=== PATIENT | male | born 1945 | race Caucasian/White ===

== ENCOUNTER 2017-06-17 10:46 | Day surgery (SDC) | payer MEDICARE ==
[2017-06-16 11:36] VITALS: BMI 26.1
--- NOTE | 2017-06-17 13:47 | OP ---
DATE OF PROCEDURE: 06/17/2017 SURGEON: Andres Bernal M.D. MAINTENANCE DATA ANALYST SURGEON: None. PROCEDURE PERFORMED: Colonoscopy with snare polypectomy. INDICATION: A 72-year-old man here for average risk colorectal cancer screening exam. His last colo noscopy was 11 years ago, he reports no prior history of colon polyps. MEDICATIONS: See anesthesia record. FINDINGS: After discussion of the risks, benefits and alternatives of the procedure, informed consen t was obtained and witnessed. Pre-endoscopic cardiopulmonary examination was satisfactory. DESCRIPTION OF PROCEDURE: Timeout was performed before sedation was achieved. Sedation was achieved with anesthesia assistance in the endoscopy unit. A digital rectal exam was performed, which was un remarkable. A Pentax adult colonoscope was inserted into the anus and passed forward to the cecum in the usual fashion. The cecal base was identified by the appendiceal orifice as well as the ileoceca l valve. The terminal ileum was not intubated. The colonoscope was then slowly withdrawn in a gradu al and circumferential manner with careful examination of the entire colonic mucosa. The quality of the prep was good. In the descending colon, there was a single small sessile polyp measuring only 2 mm in diameter. This was completely removed with cold snare, but was unable to be retrieved for path ology. The remainder of the colonic mucosa appeared normal throughout. No abnormalities on retrofle xion in the rectum. The colonoscope was then completely withdrawn and the patient allowed to recover . The patient tolerated the procedure well. There were no immediate post-procedure complications. IMPRESSION: 1. Single 2 mm polyp in the descending colon, completely removed with cold snare and retrieved for p athology. 2. Otherwise, normal colonoscopy to the cecum. RECOMMENDATIONS: Repeat colonoscopy for surveillance in 5 years.
[2017-06-17] MEDS ORDERED: Propofol 200 MG/20 ML VIAL ONE (16:15)
== END 2017-06-17 14:10 | disposition home or self-care (01) ==
LOC: SDC 10:46
PROVIDERS: ATTEND Internal Medicine
PROC: 0DBM8ZX Excision of Descending Colon, Via Natural or Artificial Opening Endoscopic, Diagnostic (ICD-10-PCS; principal; 2017-06-17)
DX: Z12.11 Encounter for screening for malignant neoplasm of colon (principal); K63.5 Polyp of colon; I25.10 Atherosclerotic heart disease of native coronary artery without angina pectoris; E78.00 Pure hypercholesterolemia, unspecified; I10 Essential (primary) hypertension; E11.9 Type 2 diabetes mellitus without complications; Z87.891 Personal history of nicotine dependence; Z95.1 Presence of aortocoronary bypass graft; Z95.810 Presence of automatic (implantable) cardiac defibrillator; Z79.84 Long term (current) use of oral hypoglycemic drugs; Z79.82 Long term (current) use of aspirin; Z79.899 Other long term (current) drug therapy; Z98.890 Other specified postprocedural states
CPT/HCPCS: J2704

== ENCOUNTER 2019-04-07 08:20 | Outpatient (CLI) | payer MEDICARE ==
--- NOTE | 2019-04-07 11:42 | CT ---
CT ABDOMEN AND PELVIS WITH AND WITHOUT IV CONTRAST: Date: 04/07/19 PROVIDED CLINICAL HISTORY: Hematuria. FINDINGS: There is a partially calcified nodule at the left lung base with somewhat spiculated appearance to th e adjacent lung parenchyma that may be on the basis of volume loss. Trace bilateral pleural fluid. No evidence for urinary tract calculi or hydronephrosis. No evidence for renal mass. The delayed images demonstrate no evidence for filling defect involving t he renal collecting systems, opacified ureters, or urinary bladder. The liver, spleen, pancreas, and adrenal glands demonstrate an unremarkable CT appearance. There is no bowel dilatation, inflammatory fat stranding, free fluid, or lymph node enlargement appar ent. Vascular calcifications are seen. The osseous structures demonstrate no concerning lytic or blastic lesions. Degenerative changes are s een. IMPRESSION: 1. An etiology for the patient's hematuria is not evidence on this examination. 2. Partially calcified left lower lobe pulmonary nodule, for which 3-6 month follow-up chest CT is r ecommended. POS: OFF
[2019-04-07] MEDS ORDERED: Iopamidol 370 76% 100 ML VIAL ONE (18:12)
== END 2019-04-07 08:21 | disposition home or self-care (01) ==
LOC: CT 08:20
PROVIDERS: ATTEND Family Medicine
DX: R31.9 Hematuria, unspecified (principal); R91.1 Solitary pulmonary nodule
CPT/HCPCS: 74178; 82565; Q9967

== ENCOUNTER 2019-07-20 10:59 | Outpatient (CLI) | payer MEDICARE ==
--- NOTE | 2019-07-20 12:03 | CT ---
CT CHEST WITHOUT CONTRAST: HISTORY: Lung nodule. COMPARISON: None. FINDINGS: Lower neck and axilla: No masses or lymphadenopathy. Mediastinum: Limited evaluation by the lack of IV contrast. No mass, lymphadenopathy or hematoma. Aorta: Atherosclerosis of a nonaneurysmal aorta. HEART: No significant pericardial fluid. There are coronary artery calcifications. Normal heart size. Upper abdomen: Visualized upper solid abdominal viscera is unremarkable. Osseous structures: No lytic or blastic lesions. Trachea and central bronchi: Patent. Pleural spaces: No effusion. Pneumothorax: None. Lungs: Hyperinflation with chronic changes. There are scattered areas of scarring and atelectasis in the lung parenchyma, predominantly in both lower lobes. There is a calcified granuloma with associated scar formation in the left lower lobe, measuring 0.9 x 0.6 cm. Right lung: No suspicious masses, consolidation or nodules. Left lung: No suspicious masses, consolidation or nodules. IMPRESSION: 1. No suspicious masses, consolidation or nodules in the lung parenchyma. 2. Calcified nodule in the left lower lobe with associated scar. When compared to the CT from 019, there is no significant change. Transcribed Date/Time: 07/20/2019 12:32 PM
== END 2019-07-20 11:00 | disposition home or self-care (01) ==
LOC: SCSCT 10:59
PROVIDERS: ATTEND Family Medicine
DX: R91.1 Solitary pulmonary nodule (principal)
CPT/HCPCS: 71250

== ENCOUNTER 2021-12-16 08:17 | Emergency (ER) | payer MEDICARE | END 2021-12-16 09:40 | disposition home or self-care (01) | LOC: ERS 08:17 | DX: J32.0 Chronic maxillary sinusitis (principal); B96.89 Other specified bacterial agents as the cause of diseases classified elsewhere; I10 Essential (primary) hypertension; E78.5 Hyperlipidemia, unspecified; R73.03 Prediabetes; Z79.82 Long term (current) use of aspirin; Z79.84 Long term (current) use of oral hypoglycemic drugs; Z79.899 Other long term (current) drug therapy | CPT/HCPCS: 99283 ==

== ENCOUNTER 2021-12-24 08:05 | Emergency (ER) | payer MEDICARE ==
[2021-12-24] MEDS ORDERED: Dexamethasone 10 MG/ML VIAL ONE (09:14)
== END 2021-12-24 09:39 | disposition home or self-care (01) ==
LOC: ERS 08:05
DX: J01.00 Acute maxillary sinusitis, unspecified (principal); I10 Essential (primary) hypertension; E78.5 Hyperlipidemia, unspecified; Z79.82 Long term (current) use of aspirin; Z79.899 Other long term (current) drug therapy
CPT/HCPCS: 96372; 99283; J1100

== ENCOUNTER 2022-01-10 08:39 | Outpatient (CLI) | payer MEDICARE | END 2022-01-10 08:40 | disposition home or self-care (01) | LOC: CTENTCT 08:39 | PROVIDERS: ATTEND Student in an Organized Health Care Education/Training Program | DX: J01.90 Acute sinusitis, unspecified (principal) | CPT/HCPCS: 70486 ==